=== PATIENT | female | born 1970 | race Caucasian/White ===

== ENCOUNTER → 2020-05-24 09:47 | Outpatient (CLI) | payer MEDICARE, OTHER, SELFPAY ==
--- NOTE | 2020-05-24 | MR_ITS ---
PROCEDURE: MR ANKLE LT WO CON CLINICAL INDICATION: LEFT ANKLE PAIN Anterior ankle pain following injury COMPARISON: No exams were available for comparison TECHNIQUE: Routine multiplanar multi echo sequences are performed without gadolinium enhancement. FINDINGS: There are no plain radiographs available for comparison. The correlation with plain films is needed. There is an area of increased T2 signal within the lateral cuneiform suggesting an area of bone marrow edema. There is also increased T2 signal involving the anterior aspect of the distal tibia suggesting bone bruise. The tibiofibular ligaments appear intact. There is some increased T2 signal involving the ATFL which may represent sprain versus partial tear. A complete ATFL tear is not felt to be present. The PT FL is intact. The deltoid ligament appears to be intact as does the spring ligament. The talus has an unremarkable appearance as does the anterior and posterior subtalar joint. The posterior tibialis, flexor digitorum longus, and flexor hallucis longus as well as the peroneal tendons appear intact. The anterior extensor tendons appear intact. There is a moderate ankle joint effusion with fluid present in the long the anterior aspect of the ankle joint. There is a mild degree of motion artifact which somewhat obscures fine detail. The Achilles tendon is intact. A small amount of fluid is also present within the posterior aspect of the ankle region with fluid in Kager's fat pad. IMPRESSION: 1. Bone bruise of the anterior distal tibia with ankle joint effusion. Please correlate with radiograph. 2. Bone bruise of the lateral cuneiform. Please correlate with radiographs. 3. Sprain versus partial tear of the ATFL. Dictated by: Clay Paz MD 05/27/2020 15:00 Clay Paz MD in [place] 05/27/2020 15:00
== END ==
PROVIDERS: PCP Internal Medicine; Visit Provider Internal Medicine
DX: M79.672 Pain in left foot (principal)
CPT/HCPCS: 73721